=== PATIENT | male | born 1990 | race Caucasian/White ===

== ENCOUNTER 2019-06-08 00:34 | Emergency (ER) | payer BC, SELFPAY ==
[2019-06-08 01:18] VITALS: BP 112/75; PULSE 84; RESP 18; TEMP 37.2; O2SAT 100
--- NOTE | 2019-06-08 02:44 | PC.NURSE ---
PT STATED THAT HIS RIDE WAS LEAVING HIM AT THIS TIME AND HE WOULD NOT BE ABLE TO STAY TO BE TREATED. PT AMBULATORY WITHOUT DIFFICULTY OUT OF ED.
== END 2019-06-08 02:44 | disposition left against medical advice (07) ==
DX: R50.9 Fever, unspecified (principal)
CPT/HCPCS: 99199

== ENCOUNTER → 2022-08-02 13:12 | Outpatient (CLI) | payer OTHER, SELFPAY ==
--- NOTE | ~2022-08-02 | US_ITS ---
US right upper quadrant DATE: 08/02/2022 13:33 INDICATION: Epigastric abdominal pain TECHNIQUE: Real-time imaging of liver, pancreas, gallbladder COMPARISON: None FINDINGS: No hepatic or pancreatic space-occupying mass lesion is evident. Normal hepatopedal portal venous flow direction. No gallstones or gallbladder wall thickening or pericholecystic fluid collection. Negative sonographi c Mc's sign. The common bile duct measures 2 mm, normal. IMPRESSION: Negative Reviewed, dictated and finalized at [facility]. Reviewed, dictated and finalized at [facility]. IMPRESSION: Negative
== END ==
PROVIDERS: PCP Nurse Practitioner Family; Visit Provider Nurse Practitioner Family
DX: R10.13 Epigastric pain (principal)
CPT/HCPCS: 76705

== ENCOUNTER 2024-12-20 12:48 | Outpatient (CLI) | payer OTHER, SELFPAY ==
--- NOTE | ~2024-12-20 | XR_ITS ---
EXAM: XR elbow LT min 3V, XR elbow RT min 3V DATE: 12/20/2024 13:22 HISTORY: M25.529 - Pain in BILAT ELBOW POST FALL . COMPARISON: None available. FINDINGS: Normal mineralization. No definite acute fracture or dislocation. Vertical lucency in the articular surface of the left humeral head, 1 mm step-off, 1.5 mm articular surface gap, but without visible fracture lines extending away from this site. No lytic or blastic lesion. Joint spaces are ma intained. No erosion or periosteal change. Soft tissues within normal limits. No elbow joint effusion s. IMPRESSION: Presumed old left radial head fracture, with a mild articular surface gap, correlate with history of remote trauma/fracture, comparison to outside imaging would be helpful if available. No d efinite acute osseous finding in the right or left elbows. Reviewed, dictated and finalized at [facility]. IMPRESSION: Presumed old left radial head fracture, with a mild articular surfa ce gap, correlate with history of remote trauma/fracture, comparison to outside imaging would be helpful if available. No definite acute osseous finding in th e right or left elbows.
--- OUTSIDE RECORDS SUMMARY | 2024-12-20 13:13 | XMS_ITS | Encounter Summary ---
Author Organization [facility] Address [address] [place] [id number] Care Team Providers Care Torch Brazer Name Role Phone Elizabeth Carlisle [facility] Primary Care Provider + Encounter Details Date Type Department Care Team (Latest Contact Info) Description 12/19/2024 Travel Social History Tobacco Use Types Packs/Day Years Used Date Smoking Tobacco: Former Cigarettes Smokeless Tobacco: Former Alcohol Use Standard Drinks/Week Comments Not Currently 0 (1 standard drink = 0.6 oz pur e alcohol) Sex and Gender Information Value Date Recorded Sex Assigned at Not on file Legal Sex Male 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
--- OUTSIDE RECORDS SUMMARY | 2024-12-20 13:13 | XMS_ITS | Clinical Summary ---
Author Organization [facility] Address [address] [place] [address] Care Team Providers Care Short Order Fry Cook Name Role Phone Elizabeth Carlisle [facility] Primary Care Provider + Allergies Active Allergy Reactions Criticality Noted Date Comments Penicillins Anaphylaxis,Hives High 03/01/2021 Reports allergy to all cillins Medications lidocaine (LIDODERM) 5 % Place 1 patch on the skin daily for 7 days Remove & discard patch within 12 hours or as directed by . 7 patch 04/16/2024 Active Immunizations Immunization Administration Dates Next Due Tdap 03/01/2021 Social History Tobacco Use Types Packs/Day Years Used Date Smoking Tobacco: Never Assessed Personal Safety Answer Date Recorded Have you ever been in or are you currently in a harmful physical or emotional relationship or is someone making you feel afraid or unsafe? Denies 04/15/2024 Sex and Gender Information Value Date Recorded Sex Assigned at Not on file Legal Sex Male 2:24 PM TAPE WEAVER Gender Identity Not on file Sexual Orientation Not on file Last Filed Vital Signs Vital Sign Reading Time Taken Comments Blood Pressure 110/75 04/16/2024 12:30 AM TAPE WEAVER Pulse 63 04/16/2024 12:30 AM TAPE WEAVER Temperature 36.7 C (98.1 F) 04/15/2024 6:12 PM TAPE WEAVER Respiratory Rate 16 04/16/2024 12:3 0 AM TAPE WEAVER Oxygen Saturation 99% 04/16/2024 12: 30 AM TAPE WEAVER Inhaled Oxygen Concentration - - Weight 62.1 kg (136 lb 14.5 oz) 03/01/2021 7:25 PM CDT Height 165.1 cm (5' 5) 03/01/2021 7:25 PM CDT Body Mass Index 22.78 03/01/2021 7:25 PM CDT Plan of Treatment Health Maintenance Due Date Last Done Comments Depression Screening 1988 Hepatitis C Screening 1988 Varicella Vaccines (1 of 2 - 13+ 2-dose series) 02/13/2001 Regular Well Visit/Exam 18-64 02/13/2006 HPV Vaccines (1 - 3-dose SCDM series) 02/13/2015 Covid-19 Vaccine (4 - season) 2024 08/17/2021, 08/29/2020, 08/01/2020 Influenza Vaccine (#1) 2025 4, 03/06/2013, 02/20/2012, Additional history exists DTaP/Tdap/Td Vaccine (4 - Td or Tdap) 09/21/2032 09/21/2022, 03/01/2021, 11/12/2011, Additional history exists Hepatitis B Screening Completed 08/10/2007 , 01/07/2007, 12/08/2006 Pneumococcal vaccine <65 Aged Out No longer eligible based on patient's age to complete this topic Insurance [employer] Care Teams Short Order Fry Cook Relationship Specialty Start Date End Date Elizabeth Carlisle NP PCP - General Nurse Practitioner 04/15/24
--- OUTSIDE RECORDS SUMMARY | 2024-12-20 13:13 | XMS_ITS | Clinical Summary ---
Author Organization [facility] Address [address] [place] [id number] Care Team Providers Care Fashion Buyer Name Role Phone Elizabeth Carlisle [facility] Primary Care Provider + Allergies Active Allergy Reactions Criticality Noted Date Comments Penicillins Anaphylaxis,Hives High 07/14/2023 Medications No known medications Encounters Date Type Department Care Team Description 12/19/2024 Travel from Last 3 Months Social History Tobacco Use Types Packs/Day Years Used Date Smoking Tobacco: Former Cigarettes Smokeless Tobacco: Former Tobacco Cessation:Counseling Given: Not Answered Alcohol Use Standard Drinks/Week Comments Not Currently 0 (1 standard drink = 0.6 oz pur e alcohol) Sex and Gender Information Value Date Recorded Sex Assigned at Not on file Legal Sex Male 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 PROMOTER SALES PERSON Gender Identity Not on file Sexual Orientation Not on file Last Filed Vital Signs Vital Sign Reading Time Taken Comments Blood Pressure 96/68 07/14/2023 7:36 PM PRODUCT PROMOTER SALES PERSON Pulse 102 07/14/2023 7:36 PM PRODUCT PROMOTER SALES PERSON Temperature 38.4 C (101.1 F) 07/14/2023 7:36 PM PRODUCT PROMOTER SALES PERSON Respiratory Rate 20 07/14/2023 7:36 PM PRODUCT PROMOTER SALES PERSON Oxygen Saturation 96% 07/14/2023 7:36 PM PRODUCT PROMOTER SALES PERSON Inhaled Oxygen Concentration - - Weight 63.5 kg (140 lb) 07/14/2023 6:19 PM PRODUCT PROMOTER SALES PERSON Height 165.1 cm (5' 5) 07/14/2023 6:19 PM PRODUCT PROMOTER SALES PERSON Body Mass Index 23.3 07/14/2023 6:19 PM PRODUCT PROMOTER SALES PERSON Plan of Treatment Health Maintenance Due Date Last Done Comments Annual Physical 02/13/1991 Hepatitis C 02/13/2006 Hepatitis B Vaccines (1 of 3 - 19+ 3-dose series) 02/13/2007 HPV Vaccines (1 - 3-dose SCD M series) 02/13/2015 COVID-19 Vaccine (1 - 2023-2 5 season) 2024 DTaP, Tdap and Td Vaccines ( 3 - Td or Tdap) 09/21/2032 09/21/2022, 03/01/2021 Meningococcal B Vaccine Aged Out No l onger eligible based on patient's age to complete this topic Meningococcal Vaccine Aged Out No jasmin francis eligible based on patient's age to complete this topic Pneumococcal Vaccine: Pediatrics (0 to 5 Years) and At-Risk Patients (6 to 49 Years) Aged Out No longer eligible b ased on patient's age to complete this topic RSV Immunizations Under 20 Months Aged Out No longer eligible b ased on patient's age to complete this topic Insurance [facility] Care Teams Fashion Buyer Relationship Specialty Start Date End Date Elizabeth Carlisle, [employer] OF [employer]- [address] [place] [phone] PCP - General Nurse Practitioner Family 07/14/23
== END 2024-12-20 12:49 | disposition home or self-care (01) ==
PROVIDERS: PCP Nurse Practitioner Family; Visit Provider Nurse Practitioner Family
DX: M25.521 Pain in right elbow (principal); M25.522 Pain in left elbow
CPT/HCPCS: 73080